=== PATIENT | female | born 1935 | race Caucasian/White ===

== ENCOUNTER 2022-01-02 10:15 | Inpatient (IN) ==
[2022-01-02] MEDS ORDERED: MAGNESIUM SULFATE 2 GM/50 ML BAG IV PRN (11:44)
[2022-01-02] MEDS ORDERED: ACETAMINOPHEN 325 MG TABLET PO PRN (11:44)
[2022-01-02] MEDS ORDERED: SENNOSIDES 1 TABLET PO PRN (11:44)
[2022-01-02] MEDS ORDERED: IPRATROPIUM/ALBUTEROL 3 ML AMPUL.NEB NEB PRN (11:44)
[2022-01-02] MEDS ORDERED: POLYETHYLENE GLYCOL 3350 17 GM PACKET PO PRN (11:44)
[2022-01-02] MEDS ORDERED: POTASSIUM CHLORIDE 20 MEQ TABLET PO PRN ×2 (11:44)
[2022-01-02] MEDS ORDERED: METOPROLOL TARTRATE 5 MG/5 ML VIAL IV PRN (11:44)
[2022-01-02] MEDS ORDERED: ONDANSETRON 4 MG/2 ML VIAL IV PRN (11:44)
[2022-01-02] MEDS ORDERED: POTASSIUM CHLORIDE 40 MEQ in DEXTROSE 5% IN WATER 500 ML IV PRN (11:44)
--- NOTE | 2022-01-02 11:44 | Internal Med History&Physical ---
HPI History of Present Illness Patient information: Note initiated : 01/02/22 at 11:39 am Service Date, if different from initiated Date: [] Patient: Clarice Thomas a 86 y/o F admitted on for Right Hip Fracture. Chief Complaint: [] History of present illness: Ms. Thomas is a 86 year old F Presents to [facility] ED after tripping and falling onto the right side sustaining a right hip fracture. Does have history of A. fib and did have an episode of A. fib RVR in the ED that resolved. Patient also with history of CHF. Dr. Husain orthopedic surgery was contacted [facility] head neck were negative at the outside facility. Patient's white blood cell count was 14,000 yesterday and then 12 this morning. Unknown source of infection if it is infectious. She did have hyperkalemia yesterday which is resolved on follow-up labs this morning. Review of Systems: Pertinent positives as above.denies headache/fever/chills/nausea/vomiting/chest or abdominal pain/cough/dyspnea/diarrhea. Remaining 10 point review of system reviewed negative MEDS/ALLERGIES Home Medications and Allergies Allergies Allergy/AdvReac Type Severity Reaction Status Date / Time insect venom Allergy Severe Anaphylaxis Verified 01/02/22 13:53 EXAM Constitutional Exam: General: Alert, Awake, No acute Distress Eyes/N/T: EOMI, PERRL, dry MM Head/Neck: neck supple, normocephalic atraumatic CV: irreg, 2/6SM, normal s1/s2 Pulm: Clear b/l, no wheezing/rhonchi/rales Abd: soft, nontender, +BS x4 Ext: no clubbing/cyanosis/edema Neuro: Alert, no focal deficits, moves all extremities, CN 2-12 grossly intact, sensations intact b/l upper/lower Skin: warm/dry A/P Narrative A/P Narrative: A: *Right hip fracture: *Chronic Afib w/RVR in ED: on warfarin/BB@home *h/o CHF: *Hyperkalemia, @outside facility: *Hypothyroidism: P: -Dr. Husain for orthopedic surgery -pain control -Monitor volume status closely -check UA for leukocytosis -Follow-up electrolytes -cont hector lasix/ACEI/BB -Home medication reconciliation -PT/OT -CM for placement needs -ppx: SCD and post-op per ortho likely warfarin as that is a home med Time Spent With Patient Time: Total time spent is greater than 50% in coordination of care (as documented) at patient's floor/unit and/or counseling patient: Total time spent with greater than 50% in coordination of care (as documented) at patient's floor/unit and/or counseling patient:: 50 - 70 minutes
[2022-01-02] MEDS: morphine 4 MG/ML VIAL IV PRN ×2 (14:06→18:35)
[2022-01-02] MEDS: 0.9 % SODIUM CHLORIDE 10 ML SYRINGE IV SCH ×2 (14:08→21:52)
[2022-01-02] MEDS ORDERED: 0.9 % SODIUM CHLORIDE 500 ML IV ONE (14:24)
[2022-01-02 20:09] LABS: Appearance,Urine Clear (Clear); Bilirubin,Urine Negative (Negative); Color,Urine Yellow; Culture Indicated,Urine yes; Glucose,Urine (UA) Negative (Negative); Ketones,Urine Negative (Negative); Leukocyte Esterase,Urine Negative /uL (Negative); Mucus,Urine MANY /hpf; Nitrate,Urine Positive (Negative); Protein,Urine Negative (Negative); Specific Gravity,Urine >= 1.030 (1.000-1.035); Urine Blood Trace-intact ery/mcL (Negative); Urine Hyaline Cast 4 /lph (0-2); Urine RBC 4 /hpf (0-3); Urine Squamous Epithelial Cell 3 /hpf (0-4); Urine WBC 11 /hpf (0-4); Urobilinogen,Urine Normal
[2022-01-02] MEDS: CARVEDILOL 6.25 MG TABLET PO SCH (21:51)
[2022-01-02] MEDS: DOCUSATE SODIUM 100 MG CAPSULE PO SCH (21:51)
[2022-01-02] MEDS: cefTRIAXone 1 GM VIAL IV SCH (22:06)
[2022-01-02] MEDS ORDERED: cefTRIAXone 1 GM VIAL ONE (22:08)
[2022-01-02] MEDS: HYDROcodone/APAP 5/325MG TABLET PO PRN (22:11)
[2022-01-03] MEDS: morphine 4 MG/ML VIAL IV PRN ×3 (03:56→23:44)
[2022-01-03] MEDS: 0.9 % SODIUM CHLORIDE 10 ML SYRINGE IV SCH ×2 (03:59→16:38)
[2022-01-03 06:34] LABS: Basophils # (Auto) 0.03 K/mcL (0.00-0.30); Basophils % (Auto) 0.3 % (0.0-2.0); Eosinophils # (Auto) 0.29 K/mcL (0.00-0.70); Eosinophils % (Auto) 2.9 % (0.0-7.0); Hematocrit 39.8 % (34.1-44.9); Hemoglobin 12.5 g/dL (11.2-15.7); Lymphocytes % (Auto) 11.9 % (15.5-49.0); Mean Cell Volume 97.8 fL (80.0-100.0); Mean Corpuscular HGB Conc 31.4 g/dL (31.0-36.0); Mean Platelet Volume 12.7 fL (8.8-12.5); Monocytes # (Auto) 0.96 K/mcL (0.10-0.90); Monocytes % (Auto) 9.5 % (1.0-12.0); Neutrophils % (Auto) 74.9 % (38.0-78.0); Platelet Count 158 K/mcL (140-440); RBC 4.07 M/mcL (3.59-5.38); Red Cell Distribution Width 14.4 % (11.5-14.5); WBC 10.1 K/mcL (4.5-11.0)
[2022-01-03 06:51] LABS: INR 2.1 (0.9-1.1); Prothrombin Time 24.7 sec (11.9-14.5)
[2022-01-03 06:53] LABS: ALT/SGPT 10 U/L (<40); AST/SGOT 22 U/L (<32); Albumin/Globulin Ratio 0.9 (1.0-2.3); Alkaline Phosphatase 86 U/L (39-117); Bilirubin,Direct 0.2 mg/dL (<0.3); Blood Urea Nitrogen 17 mg/dL (8-23); Calcium 8.6 mg/dL (8.6-10.4); Carbon Dioxide 27 mmol/L (22-30); Chloride 101 mmol/L (96-108); Globulin 3.2 gm/dL (2.2-3.7); Glomerular Filtration Rate 79; Glucose 101 mg/dL (70-105); Lactate Dehydrogenase 243 U/L (135-225); Phosphorous 2.9 mg/dL (2.5-4.5); Triglycerides 105 mg/dL (<150); Uric Acid 4.2 mg/dL (2.5-8.0)
--- NOTE | 2022-01-03 07:50 | Internal Med Progress Note ---
SUBJECTIVE Subjective Patient information: Note initiated : 01/03/22 at 7:47 am Service Date, if different from initiated Date: [] Patient: Clarice Thomas a 86 y/o F admitted on 01/02/22 for Right Hip Fracture. Chief Complaint: [] Interval history: History of present illness: Ms. Thomas is a 86 year old F Presents to [facility] ED after tripping and falling onto the right side sustaining a right hip fracture. Does have history of A. fib and did have an episode of A. fib RVR in the ED that resolved. Patient also with history of CHF. Dr. Husain orthopedic surgery was contacted and patient was requested transfer to [facility]. CT head neck were negative at the outside facility. Patient's white blood cell count was 14,000 yesterday and then 12 this morning. Unknown source of infection if it is infectious. She did have hyperkalemia yesterday which is resolved on follow-up labs this morning. 01/02 Patient doing all right, pain relatively controlled. Awaiting surgery. FFP ordered. Review of Systems: denies headache/fever/chills/nausea/vomiting/chest or abdominal pain/cough/dyspnea/diarrhea. Otherwise see above. Constitutional Vitals: Vital Signs Temp Pulse Resp BP Pulse Ox O2 Del Method O2 Flow Rate 97.6 F 83 19 136/80 95 2 01/03/22 03:27 01/03/22 06:01 01/03/22 06:01 01/03/22 06:01 01/03/22 06:01 01/03/22 03:00 01/03/22 03:00 Period Temp Pulse Resp BP Sys/Ballard Pulse Ox O2 Del Method O2 Flow Rate Last 24 Hr 97.6 F-98.2 F 55-114 14-25 98-162/58-94 2-99 Nasal Cannula- Nasal Cannula 2-2 Intake and Output 01/02/22 01/03/22 01/03/22 21:59 05:59 13:59 Intake Total 240 500 Output Total 175 200 Balance 65 300 Weight 94.302 kg Intake & Output: Intake & Output 01/02/22 01/03/22 01/03/22 21:59 05:59 13:59 Intake Total 240 500 Output Total 175 200 Balance 65 300 Weight 94.302 kg Intake: IV 500 Sodium Chloride 0.9% 500 ml @ 500 75 mls/hr IV .[id number] ONE Rx#: [id number] Oral 240 Output: Urine Catheter Amount 200 Void Amount 175 Other: Meal Lunch 1 jello Percent of Meal Consumed 50% Feeding Ability Independent Urine Appearance Clear Clear Uretheral (Rodriguez) Clear Urine Color Light Vannesa Dark Yellow Uretheral (Rodriguez) Yellow Exam: General: Alert, Awake, No acute Distress Eyes/N/T: EOMI, Head/Neck: neck supple, CV: irreg, 3/6SM, Pulm: Clear b/l, no wheezing/rhonchi/rales Abd: soft, nontender, +BS x4 Ext: no clubbing/cyanosis/edema Neuro: Alert, no focal deficits, moves all extremities, Skin: warm/dry OBJ DATA Labs CBC & Chem 7: 01/03/22 05:58 01/03/22 05:58 Labs: Abnormal Lab Results 01/03/22 01/03/22 01/03/22 05:58 05:58 05:58 MPV 12.7 H Lymph % (Auto) 11.9 L Lymph # (Auto) 1.20 L [place] # (Auto) 0.96 H PT 24.7 H INR 2.1 H Anion Gap 7.0 L Lactate Dehydrogenase 243 H Albumin 3.0 L Albumin/Globulin Ratio 0.9 L Urine Occult Blood Urine Nitrate Urine RBC Urine WBC Hyaline Casts Urine Mucus 01/02/22 17:30 MPV Lymph % (Auto) Lymph # (Auto) [place] # (Auto) PT INR Anion Gap Lactate Dehydrogenase Albumin Albumin/Globulin Ratio Urine Occult Blood Trace-intact A Urine Nitrate Positive A Urine RBC 4 H Urine WBC 11 H Hyaline Casts 4 H Urine Mucus Many A Meds: Medications Acetaminophen (Acetaminophen 325 Mg Tablet) 650 mg PO Q6HP PRN; Protocol PRN Reason: Per Pain Protocol/Fever > 101 Hydrocodone Bitart/Acetaminophen (Hydrocodone/Apap 5/325mg Tablet) 1 tab PO Q4HP PRN PRN Reason: PAIN LEVEL 3-6 Last Admin: 01/02/22 22:11 Dose: 1 tab Albuterol/Ipratropium (Ipratropium/Albuterol 3 Ml Ampul.Neb) 3 ml NEB Q4HP PRN PRN Reason: Shortness Of Breath Carvedilol (Carvedilol 6.25 Mg Tablet) 6.25 mg PO BID [facility] Last Admin: 01/02/22 21:51 Dose: 6.25 mg Ceftriaxone Sodium (Ceftriaxone 1 Gm Vial) 1 gm IV Q24H [facility]; Protocol Last Admin: 01/02/22 22:06 Dose: 1 gm Docusate Sodium (Docusate Sodium 100 Mg Capsule) 100 mg PO BID [facility] Last Admin: 01/02/22 21:51 Dose: 100 mg Potassium Chloride 40 meq/ (Dextrose) 520 mls @ 130 mls/hr IV UD PRN PRN Reason: Potassium < 3 Magnesium Sulfate (Magnesium Sulfate) 2 gm in 50 mls @ 50 mls/hr IV UD PRN PRN Reason: Magnesium </= 1.6 Metoprolol Tartrate (Metoprolol Tartrate 5 Mg/5 Ml Vial) 5 mg IV Q2HP PRN PRN Reason: Tachyarrhythmias HR>110 Morphine Sulfate (Morphine 4 Mg/Ml Vial) 0 mg IV Q3HP PRN PRN Reason: Pain Last Admin: 01/03/22 03:56 Dose: 2 mg Ondansetron HCl (Ondansetron 4 Mg/2 Ml Vial) 4 mg IV Q4HP PRN PRN Reason: Nausea And Vomiting Polyethylene Glycol (Polyethylene Glycol 3350 17 Gm Packet) 17 gm PO DAILYP PRN PRN Reason: Constipation Potassium Chloride (Potassium Chloride 20 Meq Tablet) 40 meq PO UD PRN PRN Reason: Potssium is 3-3.5 Potassium Chloride (Potassium Chloride 20 Meq Tablet) 40 meq PO UD PRN PRN Reason: Potassium < 3 Senna (Sennosides 1 Tablet) 2 tab PO DAILYP PRN PRN Reason: Constipation Sodium Chloride (0.9 % Sodium Chloride 10 Ml Syringe) 10 ml IV Q8 [facility] Last Admin: 01/03/22 03:59 Dose: 10 ml A/P Narrative A/P Narrative: A: *Right hip fracture: *Chronic Afib w/RVR in ED: on warfarin/BB@home *?h/o CHF: *UTI: *Hyperkalemia, @outside facility: Resolved *Hypothyroidism: P: -Dr. Husain for orthopedic surgery -ffp to reverse inr for surgery -pain control -Monitor volume status closely -rocephin pending uc -Follow-up electrolytes -cont hector ACEI/BB -PT/OT -CM for placement needs -ppx: SCD and post-op per ortho likely warfarin as that is a home med Time Spent With Patient Time: Total time spent is greater than 50% in coordination of care (as documented) at patient's floor/unit and/or counseling patient:
[2022-01-03] MEDS ORDERED: 0.9 % SODIUM CHLORIDE 250 ML IV SCH ×3 (08:00→15:15)
[2022-01-03] MEDS: CARVEDILOL 6.25 MG TABLET PO SCH ×3 (09:24→23:45)
[2022-01-03] MEDS: cefTRIAXone 1 GM VIAL IV SCH (09:24)
[2022-01-03] MEDS: DOCUSATE SODIUM 100 MG CAPSULE PO SCH ×2 (09:38→23:34)
[2022-01-03 14:46] LABS: POC INR 1.8 (0.8-1.2); POC Pro Time 21.4 (11.9-14.5)
[2022-01-03 18:22] LABS: POC INR 1.6 (0.8-1.2)
[2022-01-03] MEDS ORDERED: ACETAMINOPHEN 1,000 MG/100 ML BAG IV ONE ×2 (19:32→20:48)
[2022-01-03] MEDS ORDERED: TRANEXAMIC ACID 1,000 MG/10 ML VIAL ONE (20:07)
[2022-01-03] MEDS ORDERED: DEXAMETHASONE 10 MG/ML VIAL ONE (20:07)
[2022-01-03] MEDS ORDERED: PROPOFOL 200 MG/20 ML VIAL IV ONE (20:07)
[2022-01-03] MEDS ORDERED: MAGNESIUM SULFATE 2 GM/50 ML BAG IV ONE (20:07)
[2022-01-03] MEDS ORDERED: KETAMINE 50 MG/ML Syringe (ANEST) IV ONE (20:07)
[2022-01-03] MEDS ORDERED: ONDANSETRON 4 MG/2 ML VIAL ONE (20:07)
[2022-01-03] MEDS ORDERED: LIDOCAINE HCL/PF 100 MG/5 ML SYRINGE IV ONE (20:07)
--- NOTE | 2022-01-03 20:15 | Consultation ---
DATE OF CONSULTATION: 01/03/2022 REASON FOR CONSULTATION: Right displaced femoral neck fracture. REQUESTING SERVICE: Hospitalist service. HISTORY OF PRESENT ILLNESS: This is an 86-year-old female who yesterday sustained a fall out in [place]. She was taken to her local ER due to severe right hip pain and inability to bear weight. She had x-rays taken, which showed a displaced femoral neck fracture and she was then transferred down for definitive orthopedic care. Her pain is controlled with not moving. She denies significant other injuries. PAST MEDICAL HISTORY: Atrial fibrillation and possible history of CHF, hypothyroidism and hyperkalemia. Her home medications is coumadin and beta yonatan. ALLERGIES: INSECT VENOM. SOCIAL HISTORY: No tobacco use. PHYSICAL EXAMINATION: VITAL SIGNS: Her vitals at this time are blood pressure 145/82, pulse 70, respirations 15, temperature 97.9. GENERAL APPEARANCE: She appears her stated age, in no acute distress. She is oriented to person and place. Mood and affect are appropriate. EXTREMITIES: Her right lower extremity shows shortening. With internal rotation, she has intact sensation distally with palpable pedal pulses. Hip is very painful to any range of motion. IMAGING: Her x-rays reviewed from [place] shows a displaced right femoral neck fracture. Her most recent INR after 4 units of FFP is 1.6. IMPRESSION: Right displaced femoral neck fracture in an 86-year-old previously ambulatory female who does have atrial fibrillation and was delayed proceeding surgically due to persistently elevated INR. PLAN: I recommend, we proceed with open treatment of the femoral neck fracture with prosthetic hemiarthroplasty of the right hip. Risks of surgery discussed include but not limited to bleeding; infection; injury to nerves, blood vessels, other surrounding structures, anesthetic risks, leg length discrepancy; dislocation; fracture; DVT and pulmonary embolus risks; and the possibility of needing further surgeries. She understands these risks and wished to proceed. GISELLAB:sabina Job ID: [id number] Doc ID: [id number] Dawit Husain MD
[2022-01-03] MEDS ORDERED: NALOXONE HCL 0.4 MG/ML VIAL IV PRN (20:48)
[2022-01-03] MEDS ORDERED: diphenhydrAMINE 50 MG/ML VIAL IV PRN (20:48)
[2022-01-03] MEDS ORDERED: METOPROLOL TARTRATE 5 MG/5 ML VIAL IV PRN (20:48)
[2022-01-03] MEDS ORDERED: IPRATROPIUM/ALBUTEROL 3 ML AMPUL.NEB NEB PRN (20:48)
[2022-01-03] MEDS ORDERED: PROMETHAZINE 25 MG/ML VIAL IV PRN (20:48)
[2022-01-03] MEDS ORDERED: fentaNYL 100 MCG/2 ML VIAL IV PRN (20:48)
[2022-01-03] MEDS ORDERED: LACTATED RINGERS 250 ML IV PRN (20:48)
[2022-01-03] MEDS ORDERED: MEPERIDINE 25 MG/ML VIAL IV PRN (20:48)
[2022-01-03] MEDS ORDERED: ONDANSETRON 4 MG/2 ML VIAL IV PRN (20:48)
[2022-01-03] MEDS ORDERED: ceFAZolin 1 GM VIAL ONE (20:50)
[2022-01-03] MEDS ORDERED: LACTATED RINGERS 1,000 ML IV SCH (21:00)
--- NOTE | 2022-01-03 21:14 | Brief Operative Note ---
Brief Operative Note Date of procedure: 01/03/22 Pre-op diagnosis: Right hip displaced femoral neck fracture Post-op diagnosis: same Procedure: Open treatment of right femoral neck fracture with prosthetic hemiarthroplasty Grafts/Implants: Yes (Arpan Accolade C 6 132 stem, std neck, 47 unipolar head) Anesthesia: GETA Findings: femoral neck fracture Complications: none Surgeon: Dawit Husain Engineering Analyst: Vijay Camara Estimated blood loss (cc): 200 Specimens Removed/Pathology: none sent Condition: stable Disposition: PACU
[2022-01-03] MEDS ORDERED: TRANEXAMIC ACID 1,000 MG/10 ML VIAL IV ONE (21:41)
[2022-01-03] MEDS ORDERED: BISACODYL 10 MG SUPP.RECT PR PRN (21:41)
[2022-01-03] MEDS ORDERED: FLEETS ADULT ENEMA PR PRN (21:41)
[2022-01-03] MEDS ORDERED: MAGNESIUM HYDROXIDE 30 ML ORAL.SUSP PO PRN (21:41)
[2022-01-03] MEDS ORDERED: POLYETHYLENE GLYCOL 3350 17 GM PACKET PO PRN (21:41)
[2022-01-04] MEDS: 0.9 % SODIUM CHLORIDE 10 ML SYRINGE IV SCH ×4 (04:09→21:28)
[2022-01-04] MEDS ORDERED: ceFAZolin 1 GM VIAL IV SCH (05:00)
--- NOTE | 2022-01-04 05:31 | XRay Report ---
INDICATION: postop TECHNIQUE: AP pelvis. AP and crosstable lateral right hip COMPARISON: Preoperative evaluation dated 01/01/2022 FINDINGS: Status post right hip hemiarthroplasty. Alignment is anatomic. There is postoperative soft tissue gas. Left hip is negative. Pelvis is negative. No pelvic fracture. IMPRESSION: Status post right hip hemiarthroplasty Interpreted and Authenticated by: Rito Hernández 01/04/22
[2022-01-04] MEDS ORDERED: ceFAZolin 1 GM VIAL ONE (05:52)
[2022-01-04] MEDS: ceFAZolin 2 GM in DEXTROSE 5% IN WATER 50 ML IV SCH ×4 (06:06→13:00)
[2022-01-04 07:08] LABS: Basophils # (Auto) 0.01 K/mcL (0.00-0.30); Basophils % (Auto) 0.1 % (0.0-2.0); Eosinophils # (Auto) 0.01 K/mcL (0.00-0.70); Eosinophils % (Auto) 0.1 % (0.0-7.0); Hematocrit 37.7 % (34.1-44.9); Hemoglobin 12.1 g/dL (11.2-15.7); INR 1.5 (0.9-1.1); Lymphocytes # (Auto) 0.65 K/mcL (1.50-4.80); Lymphocytes % (Auto) 7.7 % (15.5-49.0); Mean Cell Volume 97.2 fL (80.0-100.0); Mean Corpuscular HGB Conc 32.1 g/dL (31.0-36.0); Mean Platelet Volume 13.5 fL (8.8-12.5); Monocytes # (Auto) 0.31 K/mcL (0.10-0.90); Monocytes % (Auto) 3.7 % (1.0-12.0); Platelet Count 140 K/mcL (140-440); Prothrombin Time 18.8 sec (11.9-14.5); RBC 3.88 M/mcL (3.59-5.38); Red Cell Distribution Width 13.8 % (11.5-14.5); WBC 8.5 K/mcL (4.5-11.0)
--- NOTE | 2022-01-04 07:29 | Internal Med Progress Note ---
SUBJECTIVE Subjective Patient information: Note initiated : 01/04/22 at 7:27 am Service Date, if different from initiated Date: [] Patient: Clarice Thomas a 86 y/o F admitted on 01/02/22 for Right Hip Fracture. Chief Complaint: [] Interval history: History of present illness: Ms. Thomas is a 86 year old F Presents to [facility] ED after tripping and falling onto the right side sustaining a right hip fracture. Does have history of A. fib and did have an episode of A. fib RVR in the ED that resolved. Patient also with history of CHF. Dr. Husain orthopedic surgery was contacted and patient was requested transfer to [facility]. CT head neck were negative at the outside facility. Patient's white blood cell count was 14,000 yesterday and then 12 this morning. Unknown source of infection if it is infectious. She did have hyperkalemia yesterday which is resolved on follow-up labs this morning. 01/03 Patient doing all right, pain relatively controlled. Awaiting surgery. FFP ordered. 01/04 Patient had ORIF yesterday evening. Patient says she woke up this morning a bit disoriented but came around. No other complaints. Awaiting urine culture. \Physical therapy today. Review of Systems: denies headache/fever/chills/nausea/vomiting/chest or abdominal pain/cough/dyspnea/diarrhea. Otherwise see above. Constitutional Vitals: Vital Signs Temp Pulse Resp BP Pulse Ox O2 Del Method O2 Flow Rate 97.1 F 88 18 148/95 96 1 01/04/22 04:00 01/04/22 06:15 01/04/22 06:15 01/04/22 06:15 01/04/22 06:15 01/04/22 05:00 01/04/22 05:00 Period Temp Pulse Resp BP Sys/Ballard Pulse Ox O2 Del Method O2 Flow Rate Last 24 Hr 97 F-99.1 F 42-164 13-25 128-167/75-137 1-99 Nasal Cannula- Simple Mask 1-6 Intake and Output 01/03/22 01/04/22 01/04/22 21:59 05:59 13:59 Intake Total 198 1520 Output Total 375 575 Balance -177 945 Weight 96.661 kg Intake & Output: Intake & Output 01/03/22 01/04/22 01/04/22 21:59 05:59 13:59 Intake Total 198 1520 Output Total 375 575 Balance -177 945 Weight 96.661 kg Intake: IV 0 100 Sodium Chloride 0.9% 250 ml @ 0 20 mls/hr IV .[id number] [facility] Rx#: [id number] Oral 120 Blood Product 198 IV - Manual Only 1300 Output: Urine Catheter Amount 375 425 Estimated Blood Loss 150 Other: Urine Appearance Clear Clear Urine Color Dark Vannesa Yellow Urine Odor Normal Normal Exam: General: Alert, Awake, No acute Distress Eyes/N/T: EOMI, Head/Neck: neck supple, CV: irreg, 3/6SM, Pulm: Clear b/l, no wheezing/rhonchi/rales Abd: soft, nontender, +BS x4 Ext: no clubbing/cyanosis/edema Neuro: Alert, no focal deficits, moves all extremities, Skin: warm/dry OBJ DATA Labs CBC & Chem 7: 01/04/22 05:30 01/03/22 05:58 Labs: Abnormal Lab Results 01/04/22 01/04/22 01/03/22 05:30 05:30 18:19 MPV 13.5 H Neut % (Auto) 88.0 H Lymph % (Auto) 7.7 L Lymph # (Auto) 0.65 L [place] # (Auto) POC PT 19.0 H PT 18.8 H POC INR 1.6 H INR 1.5 H Anion Gap Lactate Dehydrogenase Albumin Albumin/Globulin Ratio Urine Occult Blood Urine Nitrate Urine RBC Urine WBC Hyaline Casts Urine Mucus 01/03/22 01/03/22 01/03/22 14:44 05:58 05:58 MPV 12.7 H Neut % (Auto) Lymph % (Auto) 11.9 L Lymph # (Auto) 1.20 L [place] # (Auto) 0.96 H POC PT 21.4 H PT 24.7 H POC INR 1.8 H INR 2.1 H Anion Gap Lactate Dehydrogenase Albumin Albumin/Globulin Ratio Urine Occult Blood Urine Nitrate Urine RBC Urine WBC Hyaline Casts Urine Mucus 01/03/22 01/02/22 05:58 17:30 MPV Neut % (Auto) Lymph % (Auto) Lymph # (Auto) [place] # (Auto) POC PT PT POC INR INR Anion Gap 7.0 L Lactate Dehydrogenase 243 H Albumin 3.0 L Albumin/Globulin Ratio 0.9 L Urine Occult Blood Trace-intact A Urine Nitrate Positive A Urine RBC 4 H Urine WBC 11 H Hyaline Casts 4 H Urine Mucus Many A Meds: Medications Acetaminophen (Acetaminophen 325 Mg Tablet) 650 mg PO Q6HP PRN; Protocol PRN Reason: Per Pain Protocol/Fever > 101 Hydrocodone Bitart/Acetaminophen (Hydrocodone/Apap 5/325mg Tablet) 1 tab PO Q4HP PRN PRN Reason: PAIN LEVEL 3-6 Last Admin: 01/02/22 22:11 Dose: 1 tab Albuterol/Ipratropium (Ipratropium/Albuterol 3 Ml Ampul.Neb) 3 ml NEB Q4HP PRN PRN Reason: Shortness Of Breath Bisacodyl (Bisacodyl 10 Mg Supp.Rect) 10 mg MN Q2-3DAYS PRN PRN Reason: Constipation Carvedilol (Carvedilol 6.25 Mg Tablet) 6.25 mg PO BID [facility] Last Admin: 01/03/22 23:45 Dose: 6.25 mg Ceftriaxone Sodium (Ceftriaxone 1 Gm Vial) 1 gm IV Q24H [facility]; Protocol Last Admin: 01/03/22 09:24 Dose: 1 gm Docusate Sodium (Docusate Sodium 100 Mg Capsule) 100 mg PO BID [facility] Last Admin: 01/03/22 23:34 Dose: Not Given Potassium Chloride 40 meq/ (Dextrose) 520 mls @ 130 mls/hr IV UD PRN PRN Reason: Potassium < 3 Magnesium Sulfate (Magnesium Sulfate) 2 gm in 50 mls @ 50 mls/hr IV UD PRN PRN Reason: Magnesium </= 1.6 Cefazolin Sodium 2 gm/ (Dextrose) 50 mls @ 100 mls/hr IV Q8H [facility]; Protocol Stop: 01/04/22 13:29 Last Admin: 01/04/22 06:06 Dose: Not Given Levothyroxine Sodium (Levothyroxine 25 Mcg Tablet) 25 mcg PO DAILY [facility] Lisinopril (Lisinopril 2.5 Mg Tablet) 2.5 mg PO QDAY [facility] Magnesium Hydroxide (Magnesium Hydroxide 30 Ml Oral.Susp) 30 ml PO BIDP PRN PRN Reason: Constipation Metoprolol Tartrate (Metoprolol Tartrate 5 Mg/5 Ml Vial) 5 mg IV Q2HP PRN PRN Reason: Tachyarrhythmias HR>110 Morphine Sulfate (Morphine 4 Mg/Ml Vial) 0 mg IV Q3HP PRN PRN Reason: Pain Last Admin: 01/03/22 23:44 Dose: 1 mg Ondansetron HCl (Ondansetron 4 Mg/2 Ml Vial) 4 mg IV Q4HP PRN PRN Reason: Nausea And Vomiting Polyethylene Glycol (Polyethylene Glycol 3350 17 Gm Packet) 17 gm PO DAILYP PRN PRN Reason: Constipation Potassium Chloride (Potassium Chloride 20 Meq Tablet) 40 meq PO UD PRN PRN Reason: Potssium is 3-3.5 Potassium Chloride (Potassium Chloride 20 Meq Tablet) 40 meq PO UD PRN PRN Reason: Potassium < 3 Senna (Sennosides 1 Tablet) 2 tab PO DAILYP PRN PRN Reason: Constipation Senna (Sennosides 1 Tablet) 2 tab PO HS [facility] Sodium Biphosphate/Sodium Phosphate (Fleets Adult Enema) 1 dose MN Q3-4DAYS PRN PRN Reason: Constipation Sodium Chloride (0.9 % Sodium Chloride 10 Ml Syringe) 10 ml IV Q8 [facility] Last Admin: 01/04/22 06:45 Dose: Not Given A/P Narrative A/P Narrative: A: *Right hip fracture: s/p ORIF (01/03) *Chronic Afib w/RVR in ED: on warfarin/BB@home. rvr resolved *?h/o CHF: *UTI(GNB): *Hyperkalemia, @outside facility: Resolved *Hypothyroidism: P: -Dr. Husain for orthopedic surgery -pain control -Monitor volume status closely -rocephin pending -Follow-up electrolytes -cont hector ACEI/BB -PT/OT -CM for placement needs -ppx: SCD and post-op per ortho likely warfarin as that is a home med Time Spent With Patient Time: Total time spent is greater than 50% in coordination of care (as documented) at patient's floor/unit and/or counseling patient: Total time spent with greater than 50% in coordination of care (as documented) at patient's floor/unit and/or counseling patient:: 25 - 35 minutes
--- NOTE | 2022-01-04 08:12 | EKG ---
[facility] Test Date: 2022-01-02 Pat Name: Clarice Thomas Department: RT Room: Gender: Female Dough Raiser: : 1935 Requested By: Edd Leos Order Number: [id number] Reading MD: Rito Coats M.D. Measurements Intervals [place] Rate: 86 P: FL: QRS: -25 QRSD: 129 T: -52 QT: 364 QTc: 436 Interpretive Statements Atrial fibrillation Left bundle branch block Electronically Signed On 01-04-2022 8:11:52 PDT by Rito Coats M.D. /[id number]/[id number]
[2022-01-04] MEDS: CARVEDILOL 6.25 MG TABLET PO SCH ×2 (08:49→21:27)
[2022-01-04] MEDS: DOCUSATE SODIUM 100 MG CAPSULE PO SCH ×2 (08:49→21:27)
[2022-01-04] MEDS: LEVOTHYROXINE 25 MCG TABLET PO SCH (08:50)
[2022-01-04] MEDS: LISINOPRIL 2.5 MG TABLET PO SCH (08:50)
[2022-01-04] MEDS ORDERED: DOCUSATE SODIUM 100 MG CAPSULE PO SCH (09:00)
--- NOTE | 2022-01-04 09:13 | Operative Note ---
DATE OF OPERATION: 01/03/2022 DATE OF PROCEDURE: 01/03/2022 PREOPERATIVE DIAGNOSIS: Right hip displaced femoral neck fracture. POSTOPERATIVE DIAGNOSIS: Right hip displaced femoral neck fracture. PROCEDURE PERFORMED: Open treatment of the right femoral neck fracture with prosthetic hemiarthroplasty placing a Rincon Accolade C 132 hip stem size 6 with a standard neck and a 47 unipolar head. SURGEON: Dawit Husain M.D. FIRE PREVENTION CHIEF: Vijay Camara PA-C. This provider's expertise and technical skill were required throughout the case. The PA assisted with preoperative coordination, intraoperative retraction, wound closure, and dressing and splint application, as well as postoperative documentation and care coordination. ANESTHESIA: General. DRAINS: None. SPECIMEN: Femoral head, which was discarded. ESTIMATED BLOOD LOSS: 200 mL. POSTOPERATIVE CONDITION: Stable. INDICATIONS FOR SURGERY: This is an 86-year-old female who fell 2 days ago, injuring her right hip. She had severe pain and inability to bear weight. She was taken to her local ER, which showed a displaced femoral neck fracture. She was transferred down for definitive orthopedic treatment. Surgery was delayed due to persistently elevated INR. FINDINGS AT SURGERY: There was a displaced fracture with significant osteopenia. Post procedure showed a relatively equal leg lengths and stable hip throughout range of motion. PROCEDURE IN DETAIL: The patient had been seen preoperatively and informed consent had been obtained after discussion of risks and benefits of surgery. Risks including, but not limited to, bleeding; infection; injury to nerves, blood vessels, other surrounding structures, anesthetic risks, leg length discrepancy; dislocation; fracture; DVT and pulmonary embolus risks; and the possibility of further revision surgery. She understood and wished to proceed. Correct operative site was marked and then patient was taken to the operating room. General anesthesia was induced. She was carefully transferred onto the operating table and placed in the left lateral decubitus position. Pressure points carefully padded. The right hip and lower extremity were then carefully prepped and draped in normal sterile fashion and a timeout was performed verifying patient name, operative site, and plan. Ioban drape was used to cover the skin surfaces and a standard posterior approach incision was made with scalpel through skin and subcutaneous tissue. Hemostasis was obtained with Bovie cautery. We continued down onto the IT band. We irrigated IrriSept. I then incised the IT band in line with the skin incision. She was quite obese and this was quite a thick layer. We went ahead and placed a Charnley retractor. The leg was then internally rotated and I released short external rotators off the posterior femur. I then incised capsule along the base of the neck and hemarthrosis was suctioned. I then T'd the capsule up to the acetabular rim. We then made a freshening neck cut at the fracture level and then a corkscrew was placed into the femoral head and this was removed. This was passed off and taken to the back table and sized. It fit through a 48, but not through a 47. I went ahead and exposed the acetabulum. Bone fragments were removed with a rongeur and then we trialed the 47. This fit nicely, so we went ahead and exposed the proximal femur. A box osteotome was used to gain canal entry, then a handheld awl used to find canal trajectory. We then began sequentially broaching with the broaches up to a size 6 that seated at our neck cut. I then trialed a 132 neck with a standard neck length and a 47 head. Hip reduced with satisfactory tension. Knees through the drapes were felt and were at similar lengths and there was not excessive tension, flexing the knee and letting it rebound. I flexed the hip up and internally rotated it and it was stable, so we went ahead and redislocated. We removed the trial implants. Definitive implants were opened, except the neck spacer. I placed a cement spacer. Antibiotic cement was mixed on the back table. I used a canal brush to prepare the canal and then a suction sponge was placed down the canal. Once cement was mixed, this was then injected into the femoral canal. I hand pressurized with my thumb, first and then we broke the stem off of the cement gun and pressurized again with the rubber stopper. I then placed the stem about 15 degrees of anteversion. Excess cement was removed. We held things absolutely still until the cement had fully hardened. I then retrialed one more time with a standard neck and it was the same as before, so I went ahead and opened a standard neck spacer. The spacer was placed into the head ball. The stem was carefully cleaned and dried and the head ball was impacted. The hip was reduced, again and taken through range of motion, which was stable again. We placed the leg on a padded nail. I irrigated IrriSept again, after a minute pulse lavaged with saline. A #5 FiberWire was used to perform a posterior capsular repair and then #1 Vicryl was used to close the IT band and split, one running proximal and one running distal. Another IrriSept irrigation was done, after a minute more pulse lavage, and then fat layer was closed with Vicryl #1, then 2-0 Monocryl for subcutaneous, val for skin. Xeroform and sterile dressing applied. Leg was placed in an abductor wedge and then patient was turned supine, awakened, extubated, and transferred to recovery in stable condition. [id number] Job ID: [id number] Doc ID: [id number] Dawit Husain MD
--- NOTE | 2022-01-04 09:20 | Discharge Summary ---
Discharge Provider Provider IMPORTANT FOLLOW-UP INFORMATION FOR PCP: Patient information: Note initiated : 01/04/22 at 9:19 am Service Date, if different from initiated Date: [] Patient: Clarice Thomas a 86 y/o F admitted on 01/02/22 for Right Hip Fracture. Chief Complaint: [] Date of admission: 01/02/22 13:36 Discharge date: 01/05/22 Consults: 01/02/22 11:45 Consult to Physician [CONS] Routine Comment: Consulting Provider: Dawit Husain Reason For Exam: Physician to Consult COURSE Hospital Course Hospital course: History of present illness: Ms. Thomas is a 86 year old F Presents to [facility] ED after tripping and falling onto the right side sustaining a right hip fracture. Does have history of A. fib and did have an episode of A. fib RVR in the ED that resolved. Patient also with history of CHF. Dr. Husain orthopedic surgery was contacted and patient was requested transfer to [facility]. CT head neck were negative at the outside facility. Patient's white blood cell count was 14,000 yesterday and then 12 this morning. Unknown source of infection if it is infectious. She did have hyperkalemia yesterday which is resolved on follow-up labs this morning. 01/03 Patient doing all right, pain relatively controlled. Awaiting surgery. FFP ordered. 01/04 Patient had ORIF yesterday evening. Patient says she woke up this morning a bit disoriented but came around. No other complaints. Awaiting urine culture. \Physical therapy today. 01/05 No overnight event or new complaints. Urine cultures with gram-negative bacillus. A: *Right hip fracture: s/p ORIF (01/03) *Chronic Afib w/RVR in ED: on warfarin/BB@home. rvr resolved *?h/o CHF: *UTI(e.coli): finished abx today *Hyperkalemia, @outside facility: Resolved *Hypothyroidism: P: -Dr. Husain for orthopedic surgery Discharge diagnosis: Right hip fracture chronic A. fib with RVR UTI Secondary discharge diagnosis: Possible history of CHF hypothyroidism hyperkalemia Time Spent with Patient Time attestation: Total time spent providing and/or coordinating discharge services: Time spent: Greater than 30 minutes EXAM Constitutional Vitals: Temp Pulse Resp BP Pulse Ox O2 Del Method O2 Flow Rate 97.6 F 71 14 164/98 97 2 01/04/22 08:04 01/04/22 08:07 01/04/22 08:07 01/04/22 08:07 01/04/22 08:07 01/04/22 08:07 01/04/22 08:07 Discharge Data Data Completed and Pending Labs on day of discharge: Labs from last 24 hours 01/04/22 01/04/22 01/03/22 05:30 05:30 18:19 WBC 8.5 RBC 3.88 Hgb 12.1 Hct 37.7 MCV 97.2 MCH 31.2 MCHC 32.1 RDW 13.8 Plt Count 140 MPV 13.5 H Immature Gran % (Auto) 0.4 Neut % (Auto) 88.0 H Lymph % (Auto) 7.7 L [place] % (Auto) 3.7 Eos % (Auto) 0.1 Baso % (Auto) 0.1 Lymph # (Auto) 0.65 L [place] # (Auto) 0.31 Eos # (Auto) 0.01 Baso # (Auto) 0.01 Immature Gran # 0.03 Absolute Neutrophils 7.44 POC PT 19.0 H PT 18.8 H POC INR 1.6 H INR 1.5 H 01/03/22 14:44 WBC RBC Hgb Hct MCV MCH MCHC RDW Plt Count MPV Immature Gran % (Auto) Neut % (Auto) Lymph % (Auto) [place] % (Auto) Eos % (Auto) Baso % (Auto) Lymph # (Auto) [place] # (Auto) Eos # (Auto) Baso # (Auto) Immature Gran # Absolute Neutrophils POC PT 21.4 H PT POC INR 1.8 H INR Discharge Plan Patient/Caregiver Discharge Instructions Activity: increase activity as tolerated Diet: Regular Diet Activity Restrictions/Additional Instructions: Follow-up with PCP in 3 to 7 days. Prescriptions: New hydrocodone-acetaminophen 5-325 mg Tablet 1 tab PO Q6HP PRN (Reason: Pain Level 3-6) Qty: 20 0RF Continued carvedilol 6.25 mg tablet 1 tab PO BID warfarin 2.5 mg tablet 1 tab PO Q48 Rx Instructions: Take four days a week warfarin 2 mg tablet 1 tab PO QMWF vitamin B complex [B Complex-Vitamin B12] Tablet 1 tab PO QDAY lisinopril 2.5 mg tablet 1 tab PO QDAY cholecalciferol (vitamin D3) 1,250 mcg (50,000 unit) capsule 1 cap PO MONTHLY Rx Instructions: Take twice a month on the 1st and 15th of each month vitamins A,C,S-weau-qieybn 2,148 mcg-113 mg-45 mg-17.4mg Tablet 1 tab PO BID levothyroxine 25 mcg Tablet 25 mcg PO DAILY Other Ambulatory Orders: OT Discharge Order (Routine) Facility: [facility] - Location: Conversion-Long Term Ordered By: Edd Leos Physical Therapy at Discharge - General (Routine) Facility: [facility] - Location: Conversion-Long Term Ordered By: Edd Leos Follow Up Plan Follow up with: Dawit Husain MD [Physician] - Patient Disposition: Xfer SNF Prognosis: Fair Rehab Potential: Fair I certify that the patient requires SNF services: Yes Overall status at discharge: patient is progressing back to baseline Discharge Orders: Discharge Order (Routine); Ordered 01/05/22 Ordered By: Edd Leos
[2022-01-04] MEDS: cefTRIAXone 1 GM VIAL IV SCH (09:26)
--- NOTE | 2022-01-04 11:04 | XRay Report ---
INDICATION: hypoxia. Pulm edema? TECHNIQUE: AP portable semiupright chest x-ray COMPARISON: None FINDINGS: Lungs:Lungs are negative. No focal pulmonary parenchymal infiltrate or mass Heart, vascular:There is cardiomegaly. There is no pulmonary edema or significant pulmonary congestion Mediastinum, viviana:No mediastinal widening. No hilar mass Pleura:No pleural fluid. No pleural-based mass or calcification Skeletal:Negative. IMPRESSION: 1. Cardiomegaly 2. No pulmonary edema. No focal abnormality Interpreted and Authenticated by: Rito Hernández 01/04/22
[2022-01-04] MEDS ORDERED: WARFARIN 2.5 MG TABLET PO ONE (14:00)
--- NOTE | 2022-01-04 14:43 | Orthopedic Progress Note ---
SUBJECTIVE Subjective Patient information: Note initiated : 01/04/22 at 2:37 pm Service Date, if different from initiated Date: [] Patient: Clarice Thomas 86 y/o F admitted on 01/02/22 for Right Hip Fracture. Chief Complaint: [] Principal diagnosis: s/p R hip hemiarthroplasty Interval history: pain was well controlled except for when mobilizing Constitutional Vitals: Vital Signs Temp Pulse Resp BP Pulse Ox O2 Del Method O2 Flow Rate 98.2 F 88 18 158/92 91 1 01/04/22 12:48 01/04/22 12:00 01/04/22 12:00 01/04/22 12:00 01/04/22 12:00 01/04/22 12:00 01/04/22 12:00 Period Temp Pulse Resp BP Sys/Ballard Pulse Ox O2 Del Method O2 Flow Rate Last 24 Hr 97 F-99.1 F 50-132 14-25 135-174/75-137 1-99 Nasal Cannula- Simple Mask 1-6 Intake and Output 01/04/22 01/04/22 01/04/22 05:59 13:59 21:59 Intake Total 1520 240 Output Total 575 Balance 945 240 Weight 213 lb 1.6 oz 213 lb 1.6 oz Patient Weight 01/05/22 05:59 Weight 213 lb 1.6 oz Intake & Output: Intake & Output 01/04/22 01/04/22 01/04/22 05:59 13:59 21:59 Intake Total 1520 240 Output Total 575 Balance 945 240 Weight 213 lb 1.6 oz 213 lb 1.6 oz Intake: IV 100 Oral 120 240 IV - Manual Only 1300 Output: Urine Catheter Amount 425 Estimated Blood Loss 150 Other: Meal Breakfast Percent of Meal Consumed 100% Feeding Ability Independent Urine Appearance Clear Uretheral (Rodriguez) Clear Urine Color Yellow Uretheral (Rodriguez) Light Vannesa Urine Odor Normal General appearance: no acute distress Neurological Exam Neurological exam: Present alert and oriented X3 Additional comments: flex/extends foot/toes, sensation to light touch intack Skin Additional comments: dressing c/d/i, OBJ DATA Labs CBC & Chem 7: 01/04/22 05:30 01/03/22 05:58 Labs: Abnormal Lab Results 01/04/22 01/04/22 01/03/22 05:30 05:30 18:19 MPV 13.5 H Neut % (Auto) 88.0 H Lymph % (Auto) 7.7 L Lymph # (Auto) 0.65 L Day # (Auto) POC PT 19.0 H PT 18.8 H POC INR 1.6 H INR 1.5 H Anion Gap Lactate Dehydrogenase Albumin Albumin/Globulin Ratio Urine Occult Blood Urine Nitrate Urine RBC Urine WBC Hyaline Casts Urine Mucus 01/03/22 01/03/22 01/03/22 14:44 05:58 05:58 MPV 12.7 H Neut % (Auto) Lymph % (Auto) 11.9 L Lymph # (Auto) 1.20 L Day # (Auto) 0.96 H POC PT 21.4 H PT 24.7 H POC INR 1.8 H INR 2.1 H Anion Gap Lactate Dehydrogenase Albumin Albumin/Globulin Ratio Urine Occult Blood Urine Nitrate Urine RBC Urine WBC Hyaline Casts Urine Mucus 01/03/22 01/02/22 05:58 17:30 MPV Neut % (Auto) Lymph % (Auto) Lymph # (Auto) Day # (Auto) POC PT PT POC INR INR Anion Gap 7.0 L Lactate Dehydrogenase 243 H Albumin 3.0 L Albumin/Globulin Ratio 0.9 L Urine Occult Blood Trace-intact A Urine Nitrate Positive A Urine RBC 4 H Urine WBC 11 H Hyaline Casts 4 H Urine Mucus Many A Meds: Medications Acetaminophen (Acetaminophen 325 Mg Tablet) 650 mg PO Q6HP PRN; Protocol PRN Reason: Per Pain Protocol/Fever > 101 Last Admin: 01/04/22 14:03 Dose: 650 mg Hydrocodone Bitart/Acetaminophen (Hydrocodone/Apap 5/325mg Tablet) 1 tab PO Q4HP PRN PRN Reason: PAIN LEVEL 3-6 Last Admin: 01/02/22 22:11 Dose: 1 tab Albuterol/Ipratropium (Ipratropium/Albuterol 3 Ml Ampul.Neb) 3 ml NEB Q4HP PRN PRN Reason: Shortness Of Breath Bisacodyl (Bisacodyl 10 Mg Supp.Rect) 10 mg RI Q2-3DAYS PRN PRN Reason: Constipation Carvedilol (Carvedilol 6.25 Mg Tablet) 6.25 mg PO BID SAMAN Last Admin: 01/04/22 08:49 Dose: 6.25 mg Ceftriaxone Sodium (Ceftriaxone 1 Gm Vial) 1 gm IV Q24H [facility]; Protocol Last Admin: 01/04/22 09:26 Dose: 1 gm Docusate Sodium (Docusate Sodium 100 Mg Capsule) 100 mg PO BID [facility] Last Admin: 01/04/22 08:49 Dose: 100 mg Potassium Chloride 40 meq/ (Dextrose) 520 mls @ 130 mls/hr IV UD PRN PRN Reason: Potassium < 3 Magnesium Sulfate (Magnesium Sulfate) 2 gm in 50 mls @ 50 mls/hr IV UD PRN PRN Reason: Magnesium </= 1.6 Levothyroxine Sodium (Levothyroxine 25 Mcg Tablet) 25 mcg PO DAILY [facility] Last Admin: 01/04/22 08:50 Dose: 25 mcg Lisinopril (Lisinopril 2.5 Mg Tablet) 2.5 mg PO QDAY [facility] Last Admin: 01/04/22 08:50 Dose: 2.5 mg Magnesium Hydroxide (Magnesium Hydroxide 30 Ml Oral.Susp) 30 ml PO BIDP PRN PRN Reason: Constipation Metoprolol Tartrate (Metoprolol Tartrate 5 Mg/5 Ml Vial) 5 mg IV Q2HP PRN PRN Reason: Tachyarrhythmias HR>110 Morphine Sulfate (Morphine 4 Mg/Ml Vial) 0 mg IV Q3HP PRN PRN Reason: Pain Last Admin: 01/03/22 23:44 Dose: 1 mg Ondansetron HCl (Ondansetron 4 Mg/2 Ml Vial) 4 mg IV Q4HP PRN PRN Reason: Nausea And Vomiting Polyethylene Glycol (Polyethylene Glycol 3350 17 Gm Packet) 17 gm PO DAILYP PRN PRN Reason: Constipation Potassium Chloride (Potassium Chloride 20 Meq Tablet) 40 meq PO UD PRN PRN Reason: Potssium is 3-3.5 Potassium Chloride (Potassium Chloride 20 Meq Tablet) 40 meq PO UD PRN PRN Reason: Potassium < 3 Senna (Sennosides 1 Tablet) 2 tab PO DAILYP PRN PRN Reason: Constipation Senna (Sennosides 1 Tablet) 2 tab PO [facility] Sodium Biphosphate/Sodium Phosphate (Fleets Adult Enema) 1 dose RI Q3-4DAYS PRN PRN Reason: Constipation Sodium Chloride (0.9 % Sodium Chloride 10 Ml Syringe) 10 ml IV Q8 [facility] Last Admin: 01/04/22 06:45 Dose: Not Given Warfarin Sodium (Warfarin Per Pharmacy) 1 order PO UD SAMAN A/P Assessment and plan (1) Femoral neck fracture: Assessment and plan: POD#1 s/p R hip hemiarthroplasty-orthopedically stable Plan: leave silver dressing x 7 days, then dry dressing change daily, val out 14 days post op, WBAT RLE, posterior dislocation precautions, abductor wedge on when in bed f/u orthopedics in 4-6 weeks resume coumadin home regimen for dvt prophylaxis call if any further orthopedic questions Status: Acute Time Spent With Patient Time: Total time spent is greater than 50% in coordination of care (as documented) at patient's floor/unit and/or counseling patient:
[2022-01-04] MEDS: HYDROcodone/APAP 5/325MG TABLET PO PRN (19:47)
[2022-01-04] MEDS ORDERED: SENNOSIDES 1 TABLET PO SCH (21:00)
[2022-01-05] MEDS: HYDROcodone/APAP 5/325MG TABLET PO PRN ×2 (03:49→11:47)
[2022-01-05] MEDS: 0.9 % SODIUM CHLORIDE 10 ML SYRINGE IV SCH (06:29)
[2022-01-05 06:35] LABS: INR 1.7 (0.9-1.1); Prothrombin Time 20.2 sec (11.9-14.5)
[2022-01-05] MEDS: CARVEDILOL 6.25 MG TABLET PO SCH (08:38)
[2022-01-05] MEDS: cefTRIAXone 1 GM VIAL IV SCH (08:38)
[2022-01-05] MEDS: DOCUSATE SODIUM 100 MG CAPSULE PO SCH (08:38)
[2022-01-05] MEDS: LEVOTHYROXINE 25 MCG TABLET PO SCH (08:38)
[2022-01-05] MEDS: LISINOPRIL 2.5 MG TABLET PO SCH (08:38)
--- NOTE | 2022-01-05 10:08 | Internal Med Progress Note ---
SUBJECTIVE Subjective Patient information: Note initiated : 01/05/22 at 10:06 am Service Date, if different from initiated Date: [] Patient: Clarice Thomas a 86 y/o F admitted on 01/02/22 for Right Hip Fracture. Chief Complaint: [] Principal diagnosis: s/p R hip hemiarthroplasty Interval history: History of present illness: Ms. Thomas is a 86 year old F Presents to [facility] ED after tripping and falling onto the right side sustaining a right hip fracture. Does have history of A. fib and did have an episode of A. fib RVR in the ED that resolved. Patient also with history of CHF. Dr. Husain orthopedic surgery was contacted and patient was requested transfer to [facility]. CT head neck were negative at the outside facility. Patient's white blood cell count was 14,000 yesterday and then 12 this morning. Unknown source of infection if it is infectious. She did have hyperkalemia yesterday which is resolved on follow-up labs this morning. 01/03 Patient doing all right, pain relatively controlled. Awaiting surgery. FFP ordered. 01/04 Patient had ORIF yesterday evening. Patient says she woke up this morning a bit disoriented but came around. No other complaints. Awaiting urine culture. \Physical therapy today. 01/05 No overnight event or new complaints. Urine cultures with gram-negative bacillus. Review of Systems: denies headache/fever/chills/nausea/vomiting/chest or abdominal pain/cough/dyspnea/diarrhea. Otherwise see above. Constitutional Vitals: Vital Signs Temp Pulse Resp BP Pulse Ox O2 Del Method O2 Flow Rate 97.4 F 92 H 16 144/105 90 1 01/05/22 08:01 01/05/22 06:10 01/05/22 08:01 01/05/22 08:01 01/05/22 08:01 01/05/22 08:01 01/05/22 08:01 Period Temp Pulse Resp BP Sys/Ballard Pulse Ox O2 Del Method O2 Flow Rate Last 24 Hr 97.4 F-98.3 F 46-116 12-21 115-172/68-141 90-97 Nasal Cannula- Room Air 1-1.5 Intake and Output 01/04/22 01/05/22 01/05/22 21:59 05:59 13:59 Intake Total 1040 200 120 Output Total 375 800 Balance 665 -600 120 Weight 96.842 kg Intake & Output: Intake & Output 01/04/22 01/05/22 01/05/22 21:59 05:59 13:59 Intake Total 1040 200 120 Output Total 375 800 Balance 665 -600 120 Weight 96.842 kg Intake: IV 260 Sodium Chloride 0.9% 250 ml @ 260 20 mls/hr IV .[id number] [facility] Rx#: [id number] Oral 780 200 120 Output: Urine Catheter Amount 375 Void Amount 800 Other: Meal Lunch Breakfast Percent of Meal Consumed 100% 100% Feeding Ability Independent Independent Urine Appearance Clear Clear Uretheral (Rodriguez) Clear Urine Color Yellow Yellow Urine Odor Normal # Bowel Movements 0 Exam: General: Alert, Awake, No acute Distress Eyes/N/T: EOMI, Head/Neck: neck supple, CV: irreg, 3/6SM, Pulm: Clear b/l, no wheezing/rhonchi/rales Abd: soft, nontender, +BS x4 Ext: no clubbing/cyanosis/edema Neuro: Alert, no focal deficits, moves all extremities, Skin: warm/dry OBJ DATA Labs CBC & Chem 7: 01/04/22 05:30 01/03/22 05:58 Labs: Abnormal Lab Results 01/05/22 01/04/22 01/04/22 05:24 05:30 05:30 MPV 13.5 H Neut % (Auto) 88.0 H Lymph % (Auto) 7.7 L Lymph # (Auto) 0.65 L [place] # (Auto) POC PT PT 20.2 H 18.8 H POC INR INR 1.7 H 1.5 H Anion Gap Lactate Dehydrogenase Albumin Albumin/Globulin Ratio Urine Occult Blood Urine Nitrate Urine RBC Urine WBC Hyaline Casts Urine Mucus 01/03/22 01/03/22 01/03/22 18:19 14:44 05:58 MPV Neut % (Auto) Lymph % (Auto) Lymph # (Auto) [place] # (Auto) POC PT 19.0 H 21.4 H PT 24.7 H POC INR 1.6 H 1.8 H INR 2.1 H Anion Gap Lactate Dehydrogenase Albumin Albumin/Globulin Ratio Urine Occult Blood Urine Nitrate Urine RBC Urine WBC Hyaline Casts Urine Mucus 01/03/22 01/03/22 01/02/22 05:58 05:58 17:30 MPV 12.7 H Neut % (Auto) Lymph % (Auto) 11.9 L Lymph # (Auto) 1.20 L [place] # (Auto) 0.96 H POC PT PT POC INR INR Anion Gap 7.0 L Lactate Dehydrogenase 243 H Albumin 3.0 L Albumin/Globulin Ratio 0.9 L Urine Occult Blood Trace-intact A Urine Nitrate Positive A Urine RBC 4 H Urine WBC 11 H Hyaline Casts 4 H Urine Mucus Many A Meds: Medications Acetaminophen (Acetaminophen 325 Mg Tablet) 650 mg PO Q6HP PRN; Protocol PRN Reason: Per Pain Protocol/Fever > 101 Last Admin: 01/04/22 14:03 Dose: 650 mg Hydrocodone Bitart/Acetaminophen (Hydrocodone/Apap 5/325mg Tablet) 1 tab PO Q4HP PRN PRN Reason: PAIN LEVEL 3-6 Last Admin: 01/05/22 03:49 Dose: 1 tab Albuterol/Ipratropium (Ipratropium/Albuterol 3 Ml Ampul.Neb) 3 ml NEB Q4HP PRN PRN Reason: Shortness Of Breath Bisacodyl (Bisacodyl 10 Mg Supp.Rect) 10 mg UT Q2-3DAYS PRN PRN Reason: Constipation Carvedilol (Carvedilol 6.25 Mg Tablet) 6.25 mg PO BID [facility] Last Admin: 01/05/22 08:38 Dose: 6.25 mg Ceftriaxone Sodium (Ceftriaxone 1 Gm Vial) 1 gm IV Q24H [facility]; Protocol Last Admin: 01/05/22 08:38 Dose: 1 gm Docusate Sodium (Docusate Sodium 100 Mg Capsule) 100 mg PO BID [facility] Last Admin: 01/05/22 08:38 Dose: 100 mg Potassium Chloride 40 meq/ (Dextrose) 520 mls @ 130 mls/hr IV UD PRN PRN Reason: Potassium < 3 Magnesium Sulfate (Magnesium Sulfate) 2 gm in 50 mls @ 50 mls/hr IV UD PRN PRN Reason: Magnesium </= 1.6 Levothyroxine Sodium (Levothyroxine 25 Mcg Tablet) 25 mcg PO DAILY [facility] Last Admin: 01/05/22 08:38 Dose: 25 mcg Lisinopril (Lisinopril 2.5 Mg Tablet) 2.5 mg PO QDAY [facility] Last Admin: 01/05/22 08:38 Dose: 2.5 mg Magnesium Hydroxide (Magnesium Hydroxide 30 Ml Oral.Susp) 30 ml PO BIDP PRN PRN Reason: Constipation Metoprolol Tartrate (Metoprolol Tartrate 5 Mg/5 Ml Vial) 5 mg IV Q2HP PRN PRN Reason: Tachyarrhythmias HR>110 Morphine Sulfate (Morphine 4 Mg/Ml Vial) 0 mg IV Q3HP PRN PRN Reason: Pain Last Admin: 01/03/22 23:44 Dose: 1 mg Ondansetron HCl (Ondansetron 4 Mg/2 Ml Vial) 4 mg IV Q4HP PRN PRN Reason: Nausea And Vomiting Polyethylene Glycol (Polyethylene Glycol 3350 17 Gm Packet) 17 gm PO DAILYP PRN PRN Reason: Constipation Potassium Chloride (Potassium Chloride 20 Meq Tablet) 40 meq PO UD PRN PRN Reason: Potssium is 3-3.5 Potassium Chloride (Potassium Chloride 20 Meq Tablet) 40 meq PO UD PRN PRN Reason: Potassium < 3 Senna (Sennosides 1 Tablet) 2 tab PO DAILYP PRN PRN Reason: Constipation Senna (Sennosides 1 Tablet) 2 tab PO HS SAMAN Last Admin: 01/04/22 21:27 Dose: 2 tab Sodium Biphosphate/Sodium Phosphate (Fleets Adult Enema) 1 dose UT Q3-4DAYS PRN PRN Reason: Constipation Sodium Chloride (0.9 % Sodium Chloride 10 Ml Syringe) 10 ml IV Q8 SAMAN Last Admin: 01/05/22 06:29 Dose: 10 ml Warfarin Sodium (Warfarin Per Pharmacy) 1 order PO UD SAMAN A/P Narrative A/P Narrative: A: *Right hip fracture: s/p ORIF (01/03) *Chronic Afib w/RVR in ED: on warfarin/BB@home. rvr resolved *?h/o CHF: *UTI(GNB): *Hyperkalemia, @outside facility: Resolved *Hypothyroidism: P: -Dr. Husain for orthopedic surgery -rocephijames pending -Follow-up electrolytes -cont hector ACEI/BB -PT/OT -CM for placement needs -ppx: SCD and post-op per ortho likely warfarin as that is a home med Time Spent With Patient Time: Total time spent is greater than 50% in coordination of care (as documented) at patient's floor/unit and/or counseling patient:
[2022-01-05] MEDS ORDERED: WARFARIN 2.5 MG TABLET PO ONE (14:00)
== END 2022-01-05 15:08 | DRG 522 ==
LOC: ICU 13:36
PROVIDERS: ADMIT Internal Medicine; ATTEND Internal Medicine